=== PATIENT | female | born 1955 | race African-American/Black ===

== ENCOUNTER 2021-03-14 09:28 | Outpatient (CLI) | payer MEDICARE | END 2021-03-14 09:29 | disposition home or self-care (01) | LOC: BICMAMMO 09:28 | PROVIDERS: ATTEND Family Medicine | DX: Z12.31 Encounter for screening mammogram for malignant neoplasm of breast (principal); N64.89 Other specified disorders of breast | CPT/HCPCS: 77063; 77067 ==

== ENCOUNTER 2021-03-21 08:30 | Outpatient (CLI) | payer MEDICARE | END 2021-03-21 08:31 | disposition home or self-care (01) | LOC: BICMAMMO 08:30 | PROVIDERS: ATTEND Family Medicine | DX: R92.2 Inconclusive mammogram (principal) | CPT/HCPCS: 77065; G0279 ==